=== PATIENT | male | born 1980 | race Two or more races ===

== ENCOUNTER 2017-10-19 17:39 | Emergency (ER) | payer OTHER ==
--- NOTE | 2017-10-19 19:09 | ED Physician Documentation ---
PD HPI LOWER EXT INJURY - Stated complaint Stated Complaint: RT LEG PX & DISCOLORATION - Chief complaint Chief Complaint: Ext Problem - History obtained from History obtained from: Patient - History of Present Illness PD HPI LOW EXT INJURY LOCATION: Right, Lower leg, Ankle, Foot Type of injury: Other (he was on long plane flight and says the seat was too bard crck). No: Fall, Twist Timing - onset: Yesterday Timing - duration: Days (1-2) Timing - details: Gradual onset, Still present Worsened by: Palpating Associated symptoms: Tingling. No: Weakness, Numbness Similar symptoms before: Has not had sx before. No: No diagnosis Recently seen: Clinic (went to PCP and there is superficial swelling so sent to ER for Duplex u.), Emergency Dept, Not recently seen Review of Systems Constitutional: denies: Fever, Chills, Myalgias Nose: denies: Rhinorrhea / runny nose, Congestion Throat: denies: Sore throat Respiratory: denies: Cough GI: denies: Abdominal Pain, Nausea, Vomiting Skin: denies: Rash, Lesions PD PAST MEDICAL HISTORY - Past Medical History Past Medical History: No Cardiovascular: None Respiratory: None Neuro: None Endocrine/Autoimmune: None GI: None : None HEENT: None Psych: None Musculoskeletal: None Derm: None - Past Surgical History Past Surgical History: Yes Ortho: Other - Present Medications Home Medications: Ambulatory Orders Medication Instructions Recorded Confirmed No Known Home Medications [No 10/19/17 10/19/17 Known Home Medications] - Allergies Allergies/Adverse Reactions: Allergies Allergy/AdvReac Type Severity Reaction Status Date / Time No Known Drug Allergies Allergy Verified 10/19/17 17:48 - Social History Does the pt smoke?: Yes Smoking Status: Current every day smoker Does the pt drink ETOH?: Yes Does the pt have substance abuse?: No - Immunizations Immunizations are current?: Yes - POLST Patient has POLST: No PD ED PE NORMAL - Vitals Vital signs reviewed: Yes - General General: Alert and oriented X 3, No acute distress, Well developed/nourished - Neck Neck: Supple, no meningeal sign, No adenopathy - Cardiac Cardiac: RRR, No murmur - Respiratory Respiratory: Clear bilaterally - Abdomen Abdomen: Normal bowel sounds, Soft, Non tender - Male Male : Deferred - Rectal Rectal: Deferred - Derm Derm: Normal color, Warm and dry, No rash - Extremities Extremities: Normal ROM s pain, Other. No: No tenderness to palpate (there is small area of firmness and tenderness without redness/swelling at proximal medial calf area. Some firmness in tublar pattern c/w likely phlebitis.) - Neuro Neuro: Alert and oriented X 3, No motor deficit, No sensory deficit Eye Opening: Spontaneous Motor: Obeys Commands Verbal: Oriented GCS Score: 15 Results - Vitals Vitals: Oxygen O2 Source Room air - Rads (name of study) duplex U/S Radiology: Prelim report reviewed, EMP read contemporaneously (normal, no DVT.) PD MEDICAL DECISION MAKING - ED course Complexity details: reviewed results, considered differential (phlebitis presume due to pressure of seat onto the calf/upper calf during the flight and subsequent phlebits.), d/w patient Departure - Departure Disposition: 01 Home, Self Care Clinical Impression: Superficial thrombophlebitis Qualifiers: Superficial thrombophlebitis-Involved body area: lower extremity Laterality: right Qualified Code(s): I80.01 - Phlebitis and thrombophlebitis of superficial vessels of right lower extremity Clinical Impression: (Ruled Out): Deep vein thrombosis Condition: Stable Record reviewed to determine appropriate education?: Yes Instructions: ED Phlebitis Superficial Follow-Up: JAZIEL JAIME MD [Primary Care Provider] - Comments: Ibuprofen or naproxen 2-3 times daily if needed for discomfort. Warm towels to the area periodically. There is no deep clots seen on ultrasound. This looks to be inflammation and irritation of the superficial vein. This typically resolves over several days or so. Discharge Date/Time: 10/19/17 19:56
--- NOTE | 2017-10-19 19:45 | Ultrasound Report ---
EXAM: RIGHT LOWER EXTREMITY VENOUS ULTRASOUND EXAM DATE: 10/19/2017 07:39 PM. CLINICAL HISTORY: Right leg pain. COMPARISON: None. TECHNIQUE: Real-time sonographic vascular imaging was performed by the portfolio strategist through the lower extremity utilizing both color-flow and Doppler spectral analysis. Multiple medical center representative static amy ges were saved for review. FINDINGS: Common Femoral Vein (CFV): Normal. CFV-GSV Junction: Normal. Profunda Femoral Vein (PFV): Normal. Femoral Vein (FV) Prox: Normal. Femoral Vein (FV) Mid: Normal. Femoral Vein (FV) Dist: Normal. Popliteal Vein: Normal. Posterior Tibial Veins: Normal. Peroneal Veins: Normal. Other: None. IMPRESSION: No evidence for deep venous thrombosis. [facility] Referring Provider Line: [phone] SITE ID: [id number]
[2017-10-19 19:55] VITALS: BP 136/91
== END 2017-10-19 19:56 | disposition home or self-care (01) ==
LOC: ED 17:39
DX: I80.01 Phlebitis and thrombophlebitis of superficial vessels of right lower extremity (principal); F17.200 Nicotine dependence, unspecified, uncomplicated
CPT/HCPCS: 99283

== ENCOUNTER 2019-11-09 09:58 | Outpatient (CLI) | payer OTHER ==
--- NOTE | 2019-11-09 14:16 | MRI Report ---
Reason: LEFT KNEE PAIN Procedure Date: 11/09/2019 Accession Number: [id number] / [id number] Procedure: MRI - Knee LT W/O CPT Code: Final Report FULL RESULT: PROCEDURE: Knee LT W/O INDICATIONS: LEFT KNEE PAIN TECHNIQUE: Noncontrast sagittal PD fast spin echo and T2 fast spin echo with fat saturation, sagittal 3-D gradient sequence with fat saturation; coronal T1 spin echo and PD fast spin echo with fat saturation, and axial PD fast spin echo with fat saturation through the knee. COMPARISON: None. FINDINGS: Image quality: Excellent. Menisci: The medial and lateral menisci demonstrate normal morphology and internal signal. The meniscal root ligaments appear intact. Cruciate ligaments: The anterior and posterior cruciate ligaments appear intact. Medial structures: The medial collateral ligament appears mildly thickened with surrounding soft tissue edema suggestive of low-grade MCL sprain. The posterior oblique ligament, semimembranosus tendon insertions, and oblique popliteal ligament, and meniscocapsular junction appear intact. Visualized portions of the pes anserinus tendons appear normal. No abnormal bursal fluid. Lateral structures: The lateral collateral ligament, long and short heads of the biceps femoris tendon appear intact. The popliteus tendon appears normal; the popliteofibular ligament appears intact. The posterosuperior and anteroinferior popliteomeniscal fascicles appear intact. The arcuate and fabellofibular ligaments appear intact, around the lateral inferior geniculate artery. Iliotibial band appears normal. Anterior structures: The quadriceps and patellar tendons appear intact. Patellar alignment is normal. No femoral trochlear dysplasia or ventral trochlear prominence. No edema in the infrapatellar fat pad. Bones and cartilage: No bone marrow contusions or fractures. The cartilage of the medial and lateral femorotibial compartments, as well as the patellofemoral compartment, appears normal in thickness. Joint space: There is physiologic knee joint fluid. No Saunders?s cyst. Normal appearing synovial plicae are incidentally noted. IMPRESSION: 1. No evidence of focal meniscal tear. 2. Low-grade MCL sprain. Cruciate ligaments are intact. 3. No marrow edema. No fracture or dislocation. Articulating cartilages are intact. Reviewed by: Cresencio Patrick MD on 11/09/2019 2:15 PM PDT Approved by: Cresencio Patrick MD on 11/09/2019 2:15 PM PDT Station ID: [id number]
== END 2019-11-09 09:59 | disposition home or self-care (01) ==
LOC: DI 09:58
PROVIDERS: ATTEND General Practice
DX: S83.412A Sprain of medial collateral ligament of left knee, initial encounter (principal)

== ENCOUNTER 2020-03-19 08:16 | Outpatient (CLI) | payer OTHER ==
--- NOTE | 2020-03-19 09:10 | SLEEP CARE CONSULTATION ---
Information from patient questionnaire entered by Monae Barbuor. I have reviewed and concur with the information entered by Monae Barbour. This document represents the service I personally performed and the decisions made by me, Maritza Hfofman ARNP. History of Present Illness Service Date and Time: 03/19/2020 08 Reason for Visit: New patient Chief Complaint: reports: Unrefreshed sleep, Snoring (loud according to ), Excessive daytime sleepiness, Observed pauses in breathing (per his ), Frequent awakenings at night. denies: Insomnia, Fatigue Date of Onset: 2002 Usual bedtime: 2200 Time it takes to fall asleep: 1 HOUR Snores at night: Yes Observed to quit breathing while asleep: Yes Sleeps alone due to snoring: Yes Number of times waking at night: 3 Reasons for waking at night: reports: Choking, Snoring, Gasping for air, Bathroom Toss, Turn, or Twitch while sleeping: Yes Recalls having dreams: Yes Usually gets out of bed at: 0630 Feels refreshed in the morning: No Morning headache: No Sleepy or fatigued during the day: Yes Ever fallen asleep while driving: No (no drowsy driving) Takes day naps: Yes (1 time a week for 30 minutes) Dreams during day naps: Yes Prior sleep studies: No Additional HPI information: I had the pleasure of seeing SARABJIT ELIAS today regarding the possibility of him having a sleep disorder. His current complaints are snoring, observed pauses in breathing, unrefreshed sleep, excessive daytime sleepiness and frequent night awakenings. He states he wakes himself up snoring, choking and gasping for breath. - Parasomnia Symptoms Ever been unable to move upon waking from sleep: No Walks in sleep: No Talks in sleep: Yes Ever acted out dreams in sleep: Yes Ever felt weak in the knees when startled or emotional: No Bothered by creepy, crawly, restless sensations in legs: Yes (at night mostly, most nights) Problems with memory or concentration: No Subjective Initial [place] Sleepiness Scale score: 15 (in 2019) Past Medical History Past Medical History: reports: Other (bad knees; varicose vein). 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 Patient is and lives in [place]. Have you smoked in the past 12 months: Yes Cigarettes per day (20/pack): 10 Years of smokin Smoking Pack Years: 12.5 Alcohol use: Yes Alcohol amount and frequency: 4/weekends Caffeine use: Yes Caffeine amount and frequency: 2 cups coffee daily Family History Family history of sleep disordered breathing: Yes Family Hx Sleep Apnea: Father: Snoring, Sibling: Snoring Allergies and Home Medications Drug allergies reviewed: Yes (NKDA) Home medication list reviewed: Yes Allergy and home medication list: ibuprofen, prn Review of Systems Cardiovascular: denies: high blood pressure, palpitations, chest pain, irregular heart rate or pulse, leg or foot swelling Respiratory: denies: shortness of breath Gastrointestinal: denies: heartburn, difficulty swallowing Urinary: denies: impotence Neurological: denies: headaches, seizure, head trauma, speech dysfunction, gait or balance problems Psychiatric: denies: Attention Deficit Hyperactivity, anxiety, depression, mood disorder, claustrophobia Ear/Nose/Throat: reports: wisdom teeth removed. denies: nasal congestion, sinus problems, nose bleeds, dry mouth/throat, injury to nose, tonsillectomy Endocrine: reports: sluggishness Musculoskeletal: reports: joint pain, back pain. denies: muscle pain or cramping Immunologic: denies: allergies to food or environment Physical Exam Blood Pressure: 120/85 Cuff size: wrist Heart Rate: 73 O2 Saturation: 98 Height: 5 ft 8 in Weight: 201 lb Body Mass Index: 30.5 BMI Classification: Obese Neck circumference: 15 (inches) HEENT: No craniofacial malformation Nostrils: patent to airflow Turbinates: swollen Septum: midline Mouth and throat: narrow oropharynx Soft palate: normal Hard palate: normal Uvula: normal Uvula visualization: 50% Mallampati Class II Tongue: normal in size Tonsils: 2+ Chin and jaw: normal size and position Neck: normal w/o lymphadenopathy or thyromegaly Heart: regular rate and rhythm Lungs: clear bilaterally Impression and Plan 1. Suspected Obstructive Sleep Apnea-Hypopnea Syndrome, as suggested by a history of loud and irregular snoring, observed cessation of breath while asleep, gasping or choking in sleep, frequent awakening during the night, unrefreshed sleep, and excessive daytime sleepiness. I reviewed with patient that a narrow oropharynx and obesity are common predisposing factors for obstructive sleep apnea-hypopnea syndrome. I recommend proceeding to polysomnography to confirm the diagnosis and to assess severity. If the patient has significant sleep disordered breathing, a manual CPAP titration study will also be performed to find the optimal treatment pressure. I informed the patient of what the sleep studies involve and after some discussion, obtained agreement to proceed. The pathophysiology of obstructive sleep apnea-hypopnea syndrome was discussed with the patient and health risks of cardiovascular and cerebrovascular disease if not treated. AAS brochure for obstructive sleep apnea-hypopnea syndrome given and reviewed. Risks of drowsy driving discussed in detail and patient advised to avoid long distance driving and to cake puller at the first sign of drowsiness. Patient agreed to plan. * Schedule polysomnography +- manual CPAP titration study. * Avoid long distance driving or driving when feeling sleepy. * Avoid alcohol, sedative and muscle relaxant around bedtime. * Attempt to lose weight. * Review instructions provided by trained office staff on how to prepare for the sleep study. * Return for follow-up after sleep study completed. Counseling Topics: Weight loss health impact Visit Type: In Office Time Spent with Patient (minutes): 30 Provider Statement: I spent 100% of the Face to Face Visit with the patient with greater than 50% spent counseling the patient and coordination of care.
[2020-03-19 09:11] VITALS: BP 120/85
== END 2020-03-19 08:17 | disposition home or self-care (01) ==
LOC: SC 08:16
PROVIDERS: ATTEND Nurse Practitioner Family
DX: R06.83 Snoring (principal); R06.81 Apnea, not elsewhere classified; G47.8 Other sleep disorders; G47.10 Hypersomnia, unspecified; E66.9 Obesity, unspecified; Z68.30 Body mass index [BMI] 30.0-30.9, adult; F17.210 Nicotine dependence, cigarettes, uncomplicated
CPT/HCPCS: 99203; 99212

== ENCOUNTER 2020-04-21 20:29 | Outpatient (CLI) | payer OTHER | END 2020-04-21 20:30 | disposition home or self-care (01) | LOC: SC 20:29 | PROVIDERS: ATTEND Nurse Practitioner Family | DX: G47.33 Obstructive sleep apnea (adult) (pediatric) (principal) | CPT/HCPCS: 95810 ==

== ENCOUNTER 2020-04-29 08:10 | Outpatient (CLI) | payer OTHER ==
--- NOTE | 2020-04-29 08:41 | SLEEP CARE CONSULTATION ---
Information from patient questionnaire entered by Ivis Jerez. I have reviewed and concur with the information entered by Ivis Jerez. This document represents the service I personally performed and the decisions made by , Maritza Hoffman ARNP. History of Present Illness Service Date and Time: 04/29/2020 0810 Initial [place] Sleepiness Scale score: 15 (in 2020) Current [place] Sleepiness Scale score: 14 Additional HPI information: SARABJIT ELIAS returns for follow up and results of the recently performed polysomnography. I explained the pathophysiology behind obstructive sleep apnea. We then spent quite a bit of time discussing different treatment options. For mild obstructive sleep apnea, surgery and oral appliance are alternatives to nasal CPAP therapy but in moderate or severe cases, nasal CPAP is the most effective and reliable treatment. Because apnea is primarily in supine position, then positional management therapy could be effective. Methods discussed such as positioning with pillows, using a T-shirt with tennis balls in the back, and shown commercial products that have a pillow format on back to prevent supine sleep. I reviewed the impact of weight changes on sleep apnea and strongly recommended losing weight. After some discussion, the patient opted to go with the nasal CPAP therapy. Nasal autoCPAP set at [id number] will be ordered with rationale explained. A manual titration study will be ordered if unable to find optimal pressure with office adjustments. I explained how CPAP machine works with sample devices [id number] Dreamstation and Wortal [id number] and what to expect when using the machine. Using CPAP every night in order to get used to it was emphasized. Patient advised to put CPAP mask on before getting into bed so as not to fall asleep without CPAP. To assist acclimation to CPAP use, it could also be used for a short time during day while reading or watching TV. The patient was instructed to call the CPAP supplier to discuss any mechanical problem that may occur. If the mask given is uncomfortable or is difficult to keep on through the night even with adjustment, contact the CPAP supplier as many will replace with another mask style if notified before 30 days. If snoring or perceives is not getting enough air or too much air from the machine, notify this office. AAS patient education PAP tips reviewed and given to patient. Patient counseled not drink alcohol less than 4 hours before bedtime as it can increase snoring and apnea. Patient was cautioned about risks of drowsy driving until sleepiness symptoms resolve. Sleep Study - Results Type of Sleep Study: Polysomnography Prior sleep studies: No Polysomnography/Home Sleep Study results: IMPRESSION: The quality of the study is good. The patient had minimally reduced sleep efficiency. The sleep architecture was abnormal for sleep fragmentation and reduced amount of time spent in REM and slow wave sleep (N3). Respiratory monitoring showed severe obstructive sleep apnea-hypopnea (AHI = 43.8) associated with frequent arousals, oxyhemoglobin desaturation and moderate hypoxia (nazanin oxygen saturation of 77%). Baseline oxygen saturation was normal. The respiratory events occurred more frequently during supine sleep (supine AHI = 51.9; non-supine = 23.33). Snore was loud in intensity. There was no significant periodic leg movement of sleep. Cardiac rhythm was normal sinus rhythm without significant arrhythmia. No abnormal behavior (parasomnia) observed during the night. Allergies and Home Medications Drug allergies reviewed: Yes (NKDA) Home medication list reviewed: Yes (no changes) Review of Systems Review of systems same as previous: Yes (no changes) Physical Exam Heart Rate: 78 O2 Saturation: 98 Height: 5 ft 8 in Weight: 201 lb Body Mass Index: 30.5 BMI Classification: Obese Impression and Plan 1. Obstructive Sleep Apnea-Hypopnea Syndrome, severe, with lowest oxygen saturation of 77%. Obviously this is the cause of the patients symptoms of unrefreshed sleep, and excessive daytime sleepiness. Positive pressure therapy could benefit his overall health and reduce risks of developing cardiovascular or cerebrovascular adverse events. As mentioned above, the patient will be started on nasal autoCPAP therapy with pressure set at 4-15 cmH2O. A manual titration study will be completed if unable to find optimal treatment pressure with office adjustments. Compliance guidelines also reviewed. A copy of compliance guidelines will be given for reference at check out. Because the apnea is more severe supine, I instructed to avoid sleeping supine using pillow positioning until able to start CPAP use. * Nasal auto CPAP therapy, pressure at 4-15 cm H2O. * Attempt to lose weight. * Avoid alcohol consumption near bedtime. * Avoid supine sleep until using CPAP. * The patient is again cautioned about driving until sleepiness completely resolves. * Return one month after CPAP obtained. I will assess response to therapy and compliance at that time. Counseling Topics: Weight loss health impact Visit Type: In Office Time Spent with Patient (minutes): 17 Provider Statement: I spent 100% of the Face to Face Visit with the patient with greater than 50% spent counseling the patient and coordination of care.
== END 2020-04-29 08:11 | disposition home or self-care (01) ==
LOC: SC 08:10
PROVIDERS: ATTEND Nurse Practitioner Family
DX: G47.33 Obstructive sleep apnea (adult) (pediatric) (principal); E66.9 Obesity, unspecified; Z68.30 Body mass index [BMI] 30.0-30.9, adult
CPT/HCPCS: 99212; 99213

== ENCOUNTER 2020-07-24 13:01 | Outpatient (CLI) | payer OTHER ==
--- NOTE | 2020-07-24 13:24 | SLEEP CARE CONSULTATION ---
Information from patient questionnaire entered by Ivis Jerez. I have reviewed and concur with the information entered by Ivis Jerez. This document represents the service I personally performed and the decisions made by , Maritza Hoffman ARNP. History of Present Illness Service Date and Time: 07/24/2020 1301 Previous diagnosis: Severe, Obstructive Sleep Apnea-Hypopnea Syndrome AHI: 43.8 (in 2019) Reason for follow up: first compliance Equipment type: CPAP Equipment obtained from: Other ([facility]; initial supplies recieved) Mask style: Nasal (Dreamwear) Mask brand: Respironics Backup mask available: Yes (other mask) Last cushion change: last week Prior sleep studies: Yes Year and Where: 2019 - [facility] Type of Sleep Study: Polysomnography HPI additional information: SARABJIT ELIAS was diagnosed to have severe, AHI 43.8, obstructive sleep apnea- hypopnea syndrome and returned today for CPAP therapy first compliance follow- up. CPAP Compliance Data - Data Reviewed with Patient Average duration of nightly device use: 4 hrs 28 min Compliance rate %: 63.3 Current pressure setting (cmH2O): 4-15 (6.7 mean, 8.8 average, 10.4 maximum) Humidity settin Heated hose settin Average residual AHI: 4.8 Average large leak: 3 min 23 sec Subjective Missed days of use due to: reports: travel Patient concerns: reports: mask discomfort (still getting used to mask, can turn and cut off air on one side), dry mouth, nose, throat. denies: aerophagia, air blowing in eyes, mask leak noise, condensation in mask/hose, nasal congestion, epistaxis, other Observed to snore while using device: Yes (not as bad) Current pressure setting perceived as: comfortable On therapy, patient: reports: sleeping better, awakening more refreshed, being more awake and alert during the day, more rested overall. denies: drowsiness while driving Initial [place] Sleepiness Scale score: 15 (in 2019) Current [place] Sleepiness Scale score: 8 Allergies and Home Medications Home medication list reviewed: Yes (ibuprofen, prn) Review of Systems Review of systems same as previous: Yes (no changes) Physical Exam Heart Rate: 92 O2 Saturation: 97 Height: 5 ft 8 in Weight: 201 lb Body Mass Index: 30.5 BMI Classification: Obese Impression and Plan 1. Obstructive Sleep Apnea-Hypopnea Syndrome, severe, with good treatment compliance and fair apnea control. On CPAP therapy, the patient has better sleep quality and is more rested overall. He is still trying to get used to mask but is happy with the nasal cushion mask. He states that sometimes when turning onto side he can cut off the air on that side and it will make noises that wake him up. Mask leaks predominately from when patient sleeps on their side can be reduced by using a CPAP pillow which he can obtain online. He has had some mouth dryness and did have the DME adjust the humidity settings. Oral dryness can be reduced by adjusting humidity setting higher or heated hose lower or by adjusting both settings. Printed instructions given on how to change humidity and heated hose settings with rationale explaining why to change. Patient advised that chronic oral dryness can affect dental health. He is also still having some snoring while using the mask. To resolve snore, the CPAP pressure will be changed to 9-11 cmH20. Patient advised to contact this office if pressure change uncomfortable or if pressure change does not resolve snore. Patient's apnea severity and rationale for treatment to reduce apnea, improve sleep quality and reduce cardiovascular and cerebrovascular events was reviewed. * Change auto CPAP pressure to 9-11 cmH2O * Notify me if snoring with mask or feeling that the pressure is too much or too little * Attempt to lose weight * Call this office if any problems using CPAP * Return for follow up in 1-2 months, or sooner if concerns arise Counseling Topics: Spare mask, Weight loss health impact Visit Type: In Office Time Spent with Patient (minutes): 21 Provider Statement: I spent 100% of the Face to Face Visit with the patient with greater than 50% spent counseling the patient and coordination of care.
== END 2020-07-24 13:02 | disposition home or self-care (01) ==
LOC: SC 13:01
PROVIDERS: ATTEND Nurse Practitioner Family
DX: G47.33 Obstructive sleep apnea (adult) (pediatric) (principal); E66.9 Obesity, unspecified; Z68.30 Body mass index [BMI] 30.0-30.9, adult
CPT/HCPCS: 99212; 99213

== ENCOUNTER 2020-09-04 12:52 | Outpatient (CLI) | payer OTHER ==
--- NOTE | 2020-09-04 13:32 | SLEEP CARE CONSULTATION ---
Information from patient questionnaire entered by Wayne Tinajero. I have reviewed and concur with the information entered by Wayne Tinajero. This document represents the service I personally performed and the decisions made by , Maritza Hoffman ARNP. History of Present Illness Service Date and Time: 09/04/2020 1252 Previous diagnosis: Severe, Obstructive Sleep Apnea-Hypopnea Syndrome AHI: 43.8 (in 2019) Reason for follow up: other (6-week followup - pressure change) Equipment type: CPAP Equipment obtained from: Other ([facility]; getting supplies as needed) Mask style: Nasal pillows (Dreamwear) Backup mask available: Yes (other mask) Last cushion change: last week Prior sleep studies: No Year and Where: 2019 - [facility] Type of Sleep Study: Polysomnography HPI additional information: SARABJIT ELIAS was diagnosed to have severe, AHI 43.8, obstructive sleep apnea- hypopnea syndrome and returned today for CPAP therapy 6 week pressure change follow-up. CPAP Compliance Data - Data Reviewed with Patient Average duration of nightly device use: 5 h 7 min Compliance rate %: 50 Current pressure setting (cmH2O): 9-11 Humidity settin Heated hose settin Average residual AHI: 2.9 Average large leak: 14 min 9 sec Subjective Missed days of use due to: reports: travel Patient concerns: reports: dry mouth, nose, throat. denies: aerophagia, mask discomfort, air blowing in eyes, mask leak noise, condensation in mask/hose, nasal congestion, epistaxis, other Observed to snore while using device: No Current pressure setting perceived as: too high On therapy, patient: reports: sleeping better, awakening more refreshed, being more awake and alert during the day, more rested overall. denies: drowsiness while driving Initial [place] Sleepiness Scale score: 15 (in 2020) Current [place] Sleepiness Scale score: 10 Allergies and Home Medications Home medication list reviewed: Yes (no changes) Review of Systems Review of systems same as previous: Yes (no changes) Physical Exam Heart Rate: 85 O2 Saturation: 98 Height: 5 ft 8 in Weight: 198 lb Body Mass Index: 30.1 BMI Classification: Obese Impression and Plan 1. Obstructive Sleep Apnea-Hypopnea Syndrome, severe, with poor treatment compliance and good apnea control. On CPAP therapy, the patient has better sleep quality and is more rested overall. He has had some dry mouth. Oral dryness can be reduced by adjusting humidity setting higher or heated hose lower or by adjusting both settings. He also feels the pressure feels too high since the last adjustment. I will decrease his pressure to 9-10 cmH2O. Patient advised to contact me if pressure change is uncomfortable so that it can be adjusted. Goals for apnea control discussed. Patient's apnea severity and rationale for treatment to reduce apnea, improve sleep quality and reduce cardiovascular and cerebrovascular events was reviewed. * Change auto CPAP pressure to 9-10 cmH2O * Notify me if snoring with mask or feeling that the pressure is too much or too little * Attempt to lose weight * Call this office if any problems using CPAP * Return for follow up in 1-2 months, or sooner if concerns arise Counseling Topics: Spare mask, Weight loss health impact Visit Type: In Office Time Spent with Patient (minutes): 16 Provider Statement: I spent 100% of the Face to Face Visit with the patient with greater than 50% spent counseling the patient and coordination of care.
== END 2020-09-04 12:53 | disposition home or self-care (01) ==
LOC: SC 12:52
PROVIDERS: ATTEND Nurse Practitioner Family
DX: G47.33 Obstructive sleep apnea (adult) (pediatric) (principal); E66.9 Obesity, unspecified; Z68.30 Body mass index [BMI] 30.0-30.9, adult
CPT/HCPCS: 99212

== ENCOUNTER 2020-11-20 10:25 | Outpatient (CLI) | payer OTHER ==
--- NOTE | 2020-11-20 10:50 | SLEEP CARE CONSULTATION ---
Information from patient questionnaire entered by Ivis Jerez. I have reviewed and concur with the information entered by Ivis Jerez. This document represents the service I personally performed and the decisions made by , Maritza Hoffman ARNP. History of Present Illness Service Date and Time: 11/20/2020 1025 Previous diagnosis: Severe, Obstructive Sleep Apnea-Hypopnea Syndrome AHI: 43.8 (in 2019) Reason for follow up: three month Equipment type: CPAP Equipment obtained from: Other ([facility]; getting supplies as needed) Mask style: Nasal pillows Backup mask available: Yes (old mask) Last cushion change: 1 week Prior sleep studies: Yes Year and Where: 2019 - [facility] Type of Sleep Study: Polysomnography HPI additional information: SARABJIT ELIAS was diagnosed to have severe, AHI 43.8, obstructive sleep apnea- hypopnea syndrome and returned today for CPAP therapy three month follow-up. CPAP Compliance Data - Data Reviewed with Patient Average duration of nightly device use: 4 hr 30 min Compliance rate %: 32.2 (90 days) Current pressure setting (cmH2O): 9-10 Humidity settin Heated hose settin Average residual AHI: 2.6 Average large leak: 14 min 43 sec Subjective Missed days of use due to: reports: illness (hard to sleep with pain of hernia and shoulder pain) Patient concerns: denies: aerophagia, mask discomfort, air blowing in eyes, mask leak noise, condensation in mask/hose, nasal congestion, dry mouth, nose, throat, epistaxis, other Observed to snore while using device: No Current pressure setting perceived as: comfortable On therapy, patient: reports: sleeping better, awakening more refreshed, being more awake and alert during the day, more rested overall. denies: drowsiness while driving Initial [place] Sleepiness Scale score: 15 (in 2020) Current [place] Sleepiness Scale score: 10 Allergies and Home Medications Home medication list reviewed: Yes (ibuprofen) Review of Systems Review of systems same as previous: No (Hernia, waiting on appt to get surgery) Physical Exam Heart Rate: 74 O2 Saturation: 98 Height: 5 ft 8 in Weight: 192 lb Body Mass Index: 29.2 BMI Classification: Overweight Impression and Plan 1. Obstructive Sleep Apnea-Hypopnea Syndrome, severe, with poor treatment compliance and good apnea control. On CPAP therapy, the patient has better sleep quality and is more rested overall. Patient developed shoulder and pain in his stomach from a hernia that has made it difficult for him to sleep. He also has some shoulder pain that his PCP is evaluating. He states he is not able to really lay down and rest very well because of the pain in his stomach and shoulder and he is not using his CPAP machine because of the pain and not sleeping. He is supposed to call to make an appointment to have surgery on his hernia today. He does not like using the CPAP and feels he is getting good results when he is able to use it. He does intend to continue using his CPAP and feels his compliance will improve once he has less pain at night keeping him from sleeping. He is to follow-up here in 1 to 2 months to recheck his compliance and he was encouraged to use his CPAP every night to bring the compliance up. He voiced understanding and agreement with this plan of care. Patient's apnea severity and rationale for treatment to reduce apnea, improve sleep quality and reduce cardiovascular and cerebrovascular events was reviewed. * Continue autoCPAP pressure at 9-10 cmH2O * Notify me if snoring with mask or feeling that the pressure is too much or too little * Attempt to lose weight * Call this office if any problems using CPAP * Return for follow up in 1-2 months, or sooner if concerns arise Counseling Topics: Spare mask, Weight loss health impact Visit Type: In Office Time Spent with Patient (minutes): 14 Provider Statement: I spent 100% of the Face to Face Visit with the patient with greater than 50% spent counseling the patient and coordination of care.
== END 2020-11-20 10:26 | disposition home or self-care (01) ==
LOC: SC 10:25
PROVIDERS: ATTEND Nurse Practitioner Family
DX: G47.33 Obstructive sleep apnea (adult) (pediatric) (principal); E66.3 Overweight; Z68.29 Body mass index [BMI] 29.0-29.9, adult
CPT/HCPCS: 99212

== ENCOUNTER 2020-12-06 09:03 | Day surgery (SDC) | payer OTHER ==
[~2020-12-06 09:03] MED LIST: BUPIVACAINE 0.5% PF 30 ML VIAL ONE; LIDOCAINE 2%-EPI 1:100000 20 ML MDV ONE; ceFAZolin 2 GM/50 ML 2 GM/50 ML BAG IV ONE
[2020-12-06] MEDS ORDERED: LACTATED RINGERS 1,000 ML IV ONE ×2 (09:37→11:59)
[2020-12-06] MEDS ORDERED: fentaNYL 100 MCG/2 ML VIAL ONE (10:23)
[2020-12-06] MEDS ORDERED: LIDOCAINE-MPF 2% 5 ML VIAL ONE (10:23)
[2020-12-06] MEDS ORDERED: MIDAZOLAM 2 MG/2 ML VIAL ONE (10:23)
[2020-12-06] MEDS ORDERED: ROCURONIUM 50 MG/5 ML VIAL ONE ×2 (10:23→11:07)
[2020-12-06] MEDS ORDERED: ONDANSETRON 4 MG/2 ML VIAL ONE (10:23)
[2020-12-06] MEDS ORDERED: DEXAMETHASONE 4 MG/ML VIAL ONE (10:23)
[2020-12-06] MEDS ORDERED: PROPOFOL 200 MG/20 ML VIAL IVP ONE (10:23)
[2020-12-06] MEDS ORDERED: ePHEDrine 50 MG/ML VIAL IVP PRN (10:26)
[2020-12-06] MEDS ORDERED: HYDROmorphone 0.5 MG/0.5 ML SYRINGE IVP PRN ×2 (10:26→12:22)
[2020-12-06] MEDS ORDERED: METOCLOPRAMIDE 10 MG/2 ML VIAL IVP PRN (10:26)
[2020-12-06] MEDS ORDERED: NALOXONE 0.4 MG/ML VIAL IVP PRN (10:26)
[2020-12-06] MEDS ORDERED: ATROPINE ABBOJECT 1 MG/10 ML SYRINGE IVP PRN (10:26)
[2020-12-06] MEDS ORDERED: MORPHINE 2 MG/ML CARPUJECT IVP PRN (10:26)
[2020-12-06] MEDS ORDERED: fentaNYL 100 MCG/2 ML VIAL IVP PRN (10:26)
[2020-12-06] MEDS ORDERED: ONDANSETRON 4 MG/2 ML VIAL IVP PRN ×2 (10:26→12:22)
--- NOTE | 2020-12-06 10:26 | ANESTHESIA ---
Pre-Anesthesia VS, & Labs - Diagnosis umbilical hernia - Procedure Laparoscopic umbilical hernia repair Vital Signs: Temp Pulse Resp BP Pulse Ox 36.3 C L 75 16 131/86 H 100 12/06/20 09:15 12/06/20 09:15 12/06/20 09:15 12/06/20 09:15 12/06/20 09:15 Height: 5 ft 8 in Weight (kg): 86.5 kg Body Mass Index: 29.0 BMI Classification: Overweight - NPO >8 hours - Lab Results Lab results reviewed: Yes Home Medications and Allergies Home Medications: Ambulatory Orders Ibuprofen [Motrin] 600 mg PO Q6H PRN 12/05/20 Ibuprofen [Motrin] 600 mg PO Q6H PRN 12/05/20 Allergies/Adverse Reactions: Allergies Allergy/AdvReac Type Severity Reaction Status Date / Time No Known Drug Allergies Allergy Verified 10/19/17 17:48 Anes History & Medical History - Anesthetic History Anesthesia Complications: reports: No previous complications Family history of Anesthesia Complications: Denies Family history of Malignant Hyperthermia: Denies - Medical History Cardiovascular: reports: None Pulmonary: reports: Sleep apnea, CPAP use Gastrointestinal: reports: None Urinary: reports: None Neuro: reports: None Musculoskeletal: reports: Osteoarthritis Endocrine/Autoimmune: reports: None Blood Disorders: reports: None Skin: reports: Eczema Smoking Status: Current every day smoker Psychosocial: reports: Alcohol - Surgical History Orthopedic: reports: Other Exam General: Alert, Oriented x3, Cooperative, No acute distress Dental: WNL Mouth Openin Fingerbreadth Neck Mobility: Normal Mallampati classification: II Respiratory: Lungs clear, Normal breath sounds, No respiratory distress, No accessory muscle use Cardiovascular: Regular rate, Normal S1, Normal S2, No murmurs Plan Anesthesia Type: General, Transverse Abdominis Plane (TAP) Block Regional Block: Per Surgeon's request for Post Op pain control Consent for Procedure(s) Verified and Reviewed: Yes Code Status: Attempt Resuscitation ASA classification: 2-Mild systemic disease Is this case an emergency?: No
[2020-12-06] MEDS ORDERED: KETOROLAC 30 MG/ML VIAL ONE (10:47)
[2020-12-06] MEDS ORDERED: LACTATED RINGERS 1,000 ML IV SCH (11:00)
[2020-12-06] MEDS ORDERED: BUPIVACAINE 0.5% PF 30 ML VIAL SUBQ ONE ×2 (11:05)
[2020-12-06] MEDS ORDERED: LIDOCAINE 2%-EPI 1:100000 20 ML MDV SUBQ ONE ×2 (11:06)
[2020-12-06] MEDS ORDERED: ROPIVACAINE 0.5% PF 20 ML AMPULE ONE (11:37)
[2020-12-06] MEDS ORDERED: SUGAMMADEX 200 MG/2 ML VIAL IVP ONE (11:40)
[2020-12-06] MEDS ORDERED: oxyCODONE 5 MG TABLET PO PRN ×2 (12:14→12:22)
--- NOTE | 2020-12-06 12:39 | OPERATIVE REPORT ---
Operative Report - General Procedure Date: 12/06/20 Planned Procedure: 1. Diagnostic laparoscopy 2. Ventral hernia repair 3. Laparoscopic assistance 4. Transversus abdominis plane block per anesthesia Pre-Op Diagnosis: Symptomatic Ventral Hernia Procedure Performed: 1. Diagnostic laparoscopy 2. Ventral hernia repair 3. Laparoscopic assistance 4. Transversus abdominis plane block per anesthesia Post Op Diagnosis: Same - Procedure Note Primary Surgeon: Gregg Secondary Surgeon: KEVIN Anesthesia Provider: Lior Anesthesia Technique: General ET tube, Regional block Pathology: NONE Estimated Blood Loss (mL): 25 Indications: See EMR Findings: Symptomatic ventral hernia access through the umbilicus. Complications: NONE - Other Other Information/Narrative: Findings: 1. Incarcerated omentum. Reduced omentum without any concerns for ischemia. Good apposition of mesh. 2. Ventral hernia large performed for primary repair after dissection and IPOM performed using echo ventral light ST implant 3. No inadvertent injury, hemostatic, ultimately successful repair 4. Trochars were as follows: A. Umbilical site B. Right abdominal trocar 5 mm D. Left upper quadrant 5 mm E. Left lower quadrant 5 mm Procedure Report: Patient was taken to the operating room placed supine on the operating table. Informed consent was already obtained. Patient was induced for general endotracheal anesthesia. Patient at this time was placed for Schneider catheter. Patient was offloaded and padded. Patient was prepped and draped in the usual sterile fashion. Timeout was called and agreed to by all in the room. A plan access point was incised circumlinear umbilical incision was made. Patient had a large known umbilical hernia and thus we would start umbilical access through the site for placement of both the umbilical and right upper quadrant mesh and proceed with primary repair through the site after accessory ports placed. An incision was made sharply. Skin and subcutaneous tissues were divided using Bovie electrocautery. Fascia was encountered it was sharply divided. Muscle was bluntly divided. Posterior fascia was elevated and sharply divided. Abdominal cavity was entered without incident. At this time the large defect was appreciated and opened. Omentum and umbilical hernia sac were resected and sent for permanent pathology. We placed the Brown trocar and insufflated the abdomen to 15 mmHg with no complication. To reiterate, the defect was large greater than 4cm and closed vertically as listed elsewhere. Prior to definitive closure and mesh was chosen from the [employer] of [employer] ST with Seprafilm covering/coating echo ventral light synthetic 10cm. Trocars were placed as follows for laparoscopic adhesiolysis: A. Umbilical site B. Right abdominal trocar 5 mm D. Left upper quadrant 5 mm E. Left lower quadrant 5 mm All trocars were placed under direct laparoscopic visualization. We proceeded with brief adhesiolysis of anterior abdominal adhesions. Thereafter, we placed mesh for the umbilical hernia using echo ventral light ST implant. After closed the umbilical defect with 6 interrupted's [id number] of 0 Vicryl. Please note that the mesh implant was already rolled and inserted. At this point we reinsufflated the abdomen without any complication and through the remaining accessory ports with the Brown already removed during umbilical closure we proceeded to secure the mesh with absorbable tacking device. There is good of approximation and fixation of the mesh at this time using the a scaffold suture to oppose the mesh to the anterior abdominal wall. At this time we proceeded to affix the mesh using approximate absorbable tacks which was facilitated using the 3 trochars in the left and right upper and lower quadrants. This was performed sequentially through all trocars in a 360-degree fashion. The mesh was examined once again, and the mesh was documented by photography showing that it was clearly lying flat anteriorly against the abdominal wall. Pictures were taken of the mesh. Please note the scaffold was removed without any complication through an upsized left upper quadrant 10 mm trocar. This was ultimately closed with a Gus- Ara under direct laparoscopic vision. The abdomen was then checked for hemostasis. Small bowel was run without any concern for any occult pathology. Omentum was mobilized over the bowel. The abdomen was desufflated through remaining upper and lower quadrant trocars which were removed thereafter without any complication. Any residual air was also decompressed through the drain site as well. All trocar sites were closed with skin jared and performed for local blocks with local anesthetic. We proceeded to perform umbilicoplasty and the umbilicus was reconstructed using 0 Vicryl and 3-0 Vicryl suture. Umbilical incision was also reapproximated ultimately for the skin using skin jared. All sites were dressed in Tegaderm and Telfa. Patient tolerated procedure well which was no complication. All counts for sponges, needles, and instrument were correct at the conclusion of the case. The patient was allowed to wake from anesthesia without difficulty. Please note that voice recognition software was used to transcribe this note and inadvertent errors might persist in spite of review and editing. I am obliged to you for your attention. I am thankful to you for allowing me to participate with you in this care of this patient.
--- NOTE | 2020-12-06 12:50 | PROVIDER PROGRESS NOTE ---
Progress Note BRIEF Operative Report - General Procedure Date: 12/06/20 Planned Procedure: 1. Diagnostic laparoscopy 2. Ventral hernia repair 3. Laparoscopic assistance 4. Transversus abdominis plane block per anesthesia Pre-Op Diagnosis: Symptomatic Ventral Hernia Procedure Performed: 1. Diagnostic laparoscopy 2. Ventral hernia repair 3. Laparoscopic assistance 4. Transversus abdominis plane block per anesthesia Post Op Diagnosis: Same - Procedure Note Primary Surgeon: Gregg Secondary Surgeon: KEVIN Anesthesia Provider: Lior Anesthesia Technique: General ET tube, Regional block Pathology: NONE Estimated Blood Loss (mL): 25 Indications: See EMR Findings: See Below Complications: NONE
[2020-12-06] MEDS ORDERED: oxyCODONE 5 MG TABLET ONE (12:58)
[2020-12-06 13:27] VITALS: BP 128/81
== END 2020-12-06 09:04 | disposition home or self-care (01) ==
LOC: SDS 09:03
PROVIDERS: ATTEND Surgery
DX: K43.6 Other and unspecified ventral hernia with obstruction, without gangrene (principal); G47.30 Sleep apnea, unspecified; F17.210 Nicotine dependence, cigarettes, uncomplicated
CPT/HCPCS: 49560; 49568; A9270; C1781; J0690; J7120

== ENCOUNTER 2021-01-21 09:43 | Outpatient (CLI) | payer OTHER ==
--- NOTE | 2021-01-21 10:07 | SLEEP CARE CONSULTATION ---
Information from patient questionnaire entered by Ivis Jerez. I have reviewed and concur with the information entered by Ivis Jerez. This document represents the service I personally performed and the decisions made by , Maritza Hoffman ARNP. History of Present Illness Service Date and Time: 01/21/2021 0943 Previous diagnosis: Severe, Obstructive Sleep Apnea-Hypopnea Syndrome AHI: 43.8 (in 2019) Reason for follow up: other (2 month) Equipment type: CPAP Equipment obtained from: Other ([facility]; getting supplies as needed) Mask style: Nasal pillows Backup mask available: Yes (old mask) Last cushion change: last week Prior sleep studies: No Year and Where: 2019 - [facility] Type of Sleep Study: Polysomnography HPI additional information: SARABJIT ELIAS was diagnosed to have severe, AHI 43.8, obstructive sleep apnea- hypopnea syndrome and returned today for CPAP therapy 2 month follow-up. CPAP Compliance Data - Data Reviewed with Patient Average duration of nightly device use: 4 hr 56 min Compliance rate %: 30 (last 30)(18.3 for60 days) Current pressure setting (cmH2O): 9-10 Humidity settin Heated hose settin Average residual AHI: 2.0 Average large leak: 2 min 36 sec Subjective Missed days of use due to: reports: illness Patient concerns: denies: aerophagia, mask discomfort, air blowing in eyes, mask leak noise, condensation in mask/hose, nasal congestion, dry mouth, nose, throat, epistaxis, other Observed to snore while using device: No Current pressure setting perceived as: comfortable On therapy, patient: reports: sleeping better, awakening more refreshed, being more awake and alert during the day, more rested overall. denies: drowsiness while driving Initial [place] Sleepiness Scale score: 15 (in 2019) Current [place] Sleepiness Scale score: 7 Allergies and Home Medications Home medication list reviewed: Yes (no changes) Review of Systems Review of systems same as previous: No (hernia surgery, December 19) Physical Exam Heart Rate: 86 O2 Saturation: 98 Height: 5 ft 8 in Weight: 194 lb Body Mass Index: 29.5 BMI Classification: Overweight Impression and Plan 1. Obstructive Sleep Apnea-Hypopnea Syndrome, severe, with poor treatment compliance and good apnea control. On CPAP therapy, the patient has better sleep quality and is more rested overall. Patient had a hernia operation and the pain in his stomach prevented him from sleeping very much. He did no want to take the oxycontin that was prescribed. In the last couple of weeks I can see that he is using the CPAP more as compared to in December. Compliance guidelines reviewed for insurance coverage. Patient was counseled on the difference between meeting compliance and optimal use of CPAP. Optimal use of CPAP is use of CPAP with all sleep to obtain maximum benefit of treatment. Patient is encouraged to use CPAP with all sleep. Patient was encouraged to try to lose weight to improve his overall health and reduce apneas. Patient's apnea severity and rationale for treatment to reduce apnea, improve sleep quality and reduce cardiovascular and cerebrovascular events was reviewed. Patient will need to follow-up again in 1 to 2 months so that I might recheck his compliance at that time. * Continue autoCPAP pressure at 9-10 cmH2O * Notify me if snoring with mask or feeling that the pressure is too much or too little * Attempt to lose weight * Call this office if any problems using CPAP * Return for follow up in 1-2 months, or sooner if concerns arise Counseling Topics: Spare mask, Weight loss health impact Visit Type: In Office Time Spent with Patient (minutes): 13 Provider Statement: I spent 100% of the Face to Face Visit with the patient with greater than 50% spent counseling the patient and coordination of care.
== END 2021-01-21 09:44 | disposition home or self-care (01) ==
LOC: SC 09:43
PROVIDERS: ATTEND Nurse Practitioner Family
DX: G47.33 Obstructive sleep apnea (adult) (pediatric) (principal)
CPT/HCPCS: 99212

== ENCOUNTER 2021-02-25 14:56 | Outpatient (CLI) | payer OTHER ==
--- NOTE | 2021-02-25 15:29 | SLEEP CARE CONSULTATION ---
Information from patient questionnaire entered by Wayne Tinajero. I have reviewed and concur with the information entered by Wayne Tinajero. This document represents the service I personally performed and the decisions made by , Maritza Hoffman ARNP. History of Present Illness Service Date and Time: 02/25/2021 1456 Previous diagnosis: Severe, Obstructive Sleep Apnea-Hypopnea Syndrome AHI: 43.8 (in 2019) Reason for follow up: other (2-month followup) Equipment type: CPAP Equipment obtained from: Other ([facility]; getting supplies as needed) Mask style: Nasal Backup mask available: Yes (old mask) Last cushion change: 1.5 weeks ago Prior sleep studies: No Year and Where: 2019 - [facility] Type of Sleep Study: Polysomnography HPI additional information: SARABJIT ELIAS was diagnosed to have severe, AHI 43.8, obstructive sleep apnea- hypopnea syndrome and returned today for CPAP therapy 2 month follow-up. CPAP Compliance Data - Data Reviewed with Patient Average duration of nightly device use: 4 h 38 min Compliance rate %: 30 Current pressure setting (cmH2O): 9-10 Humidity settin Heated hose settin Average residual AHI: 2.1 Average large leak: 3 min 40 sec Subjective Missed days of use due to: reports: illness Patient concerns: reports: mask leak noise. denies: aerophagia, mask discomfort, air blowing in eyes, condensation in mask/hose, nasal congestion, dry mouth, nose, throat, epistaxis, other Observed to snore while using device: No Current pressure setting perceived as: comfortable On therapy, patient: reports: sleeping better, awakening more refreshed, being more awake and alert during the day, more rested overall. denies: drowsiness while driving Initial Siren Sleepiness Scale score: 15 (in 2020) Current Siren Sleepiness Scale score: 11 Allergies and Home Medications Home medication list reviewed: Yes (no changes) Review of Systems Review of systems same as previous: Yes (no changes) Physical Exam Heart Rate: 72 O2 Saturation: 98 Height: 5 ft 8 in Weight: 201 lb Body Mass Index: 30.5 BMI Classification: Obese Impression and Plan 1. Obstructive Sleep Apnea-Hypopnea Syndrome, severe, with poor treatment compliance and good apnea control. On CPAP therapy, the patient has better sleep quality and is more rested overall. Patient states he has been using his CPAP for at least 5 days a week and finding that he wears it about 5 to 6 hours a night. He states that he does not think it is recording all of the time that he is spending especially if he sleeps on his side. He states recently he found his filter clogged with black stuff and some debris in his water chamber. I informed the patient that [employer] has a recall on several devices like the patients machine. Patient was encouraged to register their device online with [employer] for the recall to see if their device is affected. If their device is affected they should start a claim. Patient informed that they may use an inline CPAP filter that they can obtain online to reduce chance of any particles being inhaled or ingested. We discussed thoroughly the health risks of not using the CPAP versus continuing use with the filter in place. If patient is not able to sleep due to waking up choking, gasping for air or other respiratory distress that they may decide to continue using it until it is either replaced or repaired. Patient's device is on the recall and is also malfunctioning. I will write an order to replace his device and send it to his DME. He will call to follow-up with us a month after he receives the new device. I advised him not to use this device in the meantime to try to sleep more on his side where he is less severe.Patient was encouraged to lose weight for their overall health and to reduce apneas. Patient voiced understanding and agreement with plan. Patient's apnea severity and rationale for treatment to reduce apnea, improve sleep quality and reduce cardiovascular and cerebrovascular events was reviewed. * Continue auto CPAP pressure at 9-10 cmH2O * Replacement device for malfunctioning recalled device * Notify me if snoring with mask or feeling that the pressure is too much or too little * Attempt to lose weight * Call this office if any problems using CPAP * Return for follow up one month after obtaining new device, or sooner if concerns arise Counseling Topics: Spare mask, Weight loss health impact Visit Type: In Office Time Spent with Patient (minutes): 23 Provider Statement: I spent 100% of the Face to Face Visit with the patient with greater than 50% spent counseling the patient and coordination of care.
== END 2021-02-25 14:57 | disposition home or self-care (01) ==
LOC: SC 14:56
PROVIDERS: ATTEND Nurse Practitioner Family
DX: G47.33 Obstructive sleep apnea (adult) (pediatric) (principal); E66.9 Obesity, unspecified; Z68.30 Body mass index [BMI] 30.0-30.9, adult
CPT/HCPCS: 99212; 99213

== ENCOUNTER 2021-07-17 09:14 | Emergency (ER) | payer OTHER ==
[2021-07-17] MEDS ORDERED: PROPARACAINE 0.5% OPHTH DROPS 15 ML EACHEYE STA (10:33)
--- NOTE | 2021-07-17 11:58 | ED Physician Documentation ---
PD HPI OPHTHO - Stated complaint Stated Complaint: FB RT EYE - Chief complaint Chief Complaint: Heent - Additional information Additional information: The patient comes to the emergency department chief complaint of foreign body sensation in right eye. He states that he was working with metal yesterday and wearing safety glasses, but somehow, felt as though he got some particulate in his eye. Patient states he washed his eye out but has a persistent sense that something is up in his medial upper lid. The patient denies any pain in the front of his eye. He does not wear contact lenses or glasses. No visual changes. He denies any other complaints at this time. Review of Systems Ten Systems: 10 systems reviewed and negative Constitutional: reports: Reviewed and negative Eyes: reports: Irritation, Other (Foreign body sensation) Ears: reports: Reviewed and negative Nose: reports: Reviewed and negative Throat: reports: Reviewed and negative Cardiac: reports: Reviewed and negative Respiratory: reports: Reviewed and negative GI: reports: Reviewed and negative : reports: Reviewed and negative Skin: reports: Reviewed and negative Musculoskeletal: reports: Reviewed and negative Neurologic: reports: Reviewed and negative Psychiatric: reports: Reviewed and negative Endocrine: reports: Reviewed and negative Immunocompromised: reports: Reviewed and negative PD PAST MEDICAL HISTORY - Past Medical History Past Medical History: Yes Cardiovascular: None Respiratory: Sleep apnea, CPAP use Neuro: None Endocrine/Autoimmune: None GI: None : None HEENT: Other Psych: None Musculoskeletal: Osteoarthritis Derm: Eczema - Past Surgical History Past Surgical History: Yes Ortho: Other - Present Medications Home Medications: Ambulatory Orders Medication Instructions Recorded Confirmed Ibuprofen [Motrin] 600 mg PO Q6H PRN 12/05/20 12/05/20 oxyCODONE [Roxicodone] 5 mg PO Q6H PRN #24 tablet 12/06/20 Gentamicin 0.3% Ophth Drops 1 drops OPTH BID #5 ml 07/17/21 [Garamycin] - Allergies Allergies/Adverse Reactions: Allergies Allergy/AdvReac Type Severity Reaction Status Date / Time No Known Drug Allergies Allergy Verified 07/17/21 09:27 - Social History Does the pt smoke?: Yes Smoking Status: Current every day smoker Does the pt drink ETOH?: Yes Does the pt have substance abuse?: No - Immunizations Immunizations are current?: Yes - POLST Patient has POLST: No PD ED PE NORMAL - Vitals Vital signs reviewed: Yes - General General: Alert and oriented X 3, No acute distress, Well developed/nourished - HEENT HEENT: Atraumatic, PERRL, EOMI, Moist mucous membranes, Other (Mild focal conj unctival injection medial Right eye. No drainage. No foreign body grossly or with magnification. Fluorescein exam negative. No foreign body with lid eversion.) - Neck Neck: Supple, no meningeal sign - Respiratory Respiratory: No respiratory distress - Derm Derm: Normal color, Warm and dry, No rash - Extremities Extremities: No deformity - Neuro Neuro: Alert and oriented X 3 - Psych Psych: Normal mood, Normal affect Results - Vitals Vitals: Vital Signs - 24 hr 07/17/21 07/17/21 09:21 12:26 Temperature 36.5 C 36.6 C Heart Rate 71 66 Respiratory 16 14 Rate Blood Pressure 125/89 H 126/92 H O2 Saturation 99 100 Oxygen O2 Source Room air PD MEDICAL DECISION MAKING - ED course Complexity details: considered differential, d/w patient ED course: Despite thorough examination, I could not find any evidence of a foreign body in the patient's eye, either on the conjunctiva/sclera, or under the lid. Additionally, the fluorescein exam did not reveal any abrasions, and did not highlight any foreign material. I discussed with the patient that I have not found anything. We have done a Warren lens rinse on his eye, which seems to have helped a little. At this point, I have advised him follow-up with ophthalmology for an exam to see if there is anything else that they can cherelle ntify if his symptoms do not completely resolve. I have prescribed a course of antibiotic drops in the meantime. Departure - Departure Disposition: 01 Home, Self Care Clinical Impression: Sensation of foreign body in eye Condition: Stable Instructions: Protection Eye Safety Glasses, ED Conjunctivitis Nonspecific Prescriptions: Gentamicin 0.3% Ophth Drops [Garamycin] 1 drops OPTH BID #5 ml Comments: Despite extensive evaluation, no foreign material has been found in your eye at this time. It is possible that you have a very small piece of something that has traveled back under your lid to the point where we cannot see it. To this end, your eye has been irrigated today. There is some irritation of the white part of your eye over the area where you are feeling the discomfort, but no foreign material has been found. Please take the drops had been prescribed for you. Please follow-up with ophthalmology for reevaluation sometime in the next several days if possible. Discharge Date/Time: 07/17/21 12:25
[2021-07-17 12:27] VITALS: BP 126/92
== END 2021-07-17 12:25 | disposition home or self-care (01) ==
LOC: ED 09:14
DX: T15.91XA Foreign body on external eye, part unspecified, right eye, initial encounter (principal); X58.XXXA Exposure to other specified factors, initial encounter; Y93.89 Activity, other specified; F17.200 Nicotine dependence, unspecified, uncomplicated
CPT/HCPCS: 99282; J3490

== ENCOUNTER 2023-10-08 15:07 | Emergency (ER) | payer OTHER ==
[2023-10-08 15:31] VITALS: BP 128/91; O2SAT 100
--- NOTE | 2023-10-08 15:41 | ED Physician Documentation ---
PD HPI SKIN - Stated complaint Stated Complaint: ALLERGIC RX - Chief complaint Chief Complaint: Allergic Rx - History obtained from History obtained from: Patient - Additional information Additional information: Patient is a 23-year-old male without significant past medical history presenting for evaluation of a generalized itchy rash that started last night. Denies shortness of breath or throat swelling. Denies any new exposures that he could think of such as new detergents, lotions, food or medications. He does have a history of eczema so is careful with detergents and soaps that he uses. Denies concern for Contact with any poisonous plants.Has been using Benadryl for the itching. Review of Systems Cardiac: denies: Chest pain / pressure Respiratory: denies: Dyspnea Skin: reports: Rash PD PAST MEDICAL HISTORY - Past Medical History Past Medical History: No Cardiovascular: None Respiratory: Sleep apnea, CPAP use Neuro: None Endocrine/Autoimmune: None GI: None : None HEENT: Other Psych: None Musculoskeletal: Osteoarthritis Derm: Eczema - Past Surgical History Past Surgical History: Yes General: Hiatal hernia repair Ortho: Other - Present Medications Home Medications: Ambulatory Orders Medication Instructions Recorded Confirmed Cetirizine [ZyrTEC] 10 mg PO DAILY #7 tablet 10/08/23 predniSONE [Deltasone] 20 mg PO [id number] #21 tab 10/08/23 - Allergies Allergies/Adverse Reactions: Allergies Allergy/AdvReac Type Severity Reaction Status Date / Time No Known Drug Allergies Allergy Verified 10/08/23 15:28 - Social History Does the pt smoke?: Yes Smoking Status: Current every day smoker Does the pt drink ETOH?: Yes Does the pt have substance abuse?: No - Immunizations Immunizations are current?: Yes - POLST Patient has POLST: No Results - Vitals Vitals: Vital Signs - 24 hr 10/08/23 15:23 Temperature 36.6 C Heart Rate 74 Respiratory 15 Rate Blood Pressure 128/91 H O2 Saturation 100 Oxygen O2 Source Room air PD Medical Decision Making - ED course ED course: Patient with diffuse pruritic rash to body starting yesterday. Vital signs are stable and lung sounds clear. No known new exposures. On appearance no signs o f infection but does appear allergic in nature. Will start on tapered course of prednisone. Patient counseled to use antihistamines as well to help with the itching. Counseled on concerning symptoms to return for. Already has a PCP appointment on Wednesday. Departure - Departure Disposition: 01 Home, Self Care Clinical Impression: Rash and nonspecific skin eruption Condition: Stable Instructions: ED Allergic Reaction General Other Prescriptions: predniSONE [Deltasone] 20 mg PO [id number] #21 tab Cetirizine [ZyrTEC] 10 mg PO DAILY #7 tablet Comments: Your rash is concerning for an Allergic reaction presenting you have come in contact with given his widespread distribution. I am starting you on a tapered course of prednisone which is a steroid. Continue with Benadryl as needed for itching as well as Zyrtec daily.I have sent prescriptions to [facility] in [place]. Return to the ER with any concerning symptoms. Please have close follow-up with your primary care doctor as you may need further testing such as a allergy panel. Forms: PCP List Discharge Date/Time: 10/08/23 16:04
== END 2023-10-08 16:04 | disposition home or self-care (01) ==
LOC: ED 15:07
DX: R21 Rash and other nonspecific skin eruption (principal); L30.9 Dermatitis, unspecified; F17.200 Nicotine dependence, unspecified, uncomplicated
CPT/HCPCS: 99282; 99283